=== PATIENT | male | born 1975 | race Caucasian/White ===

== ENCOUNTER 2023-10-08 22:10 | Emergency (ER) | payer OTHER, SELFPAY ==
--- OUTSIDE RECORDS SUMMARY | 2023-10-08 22:13 | XMS REPORT | Continuity of Care Document ---
Author Name Unknown Address [address] [facility] [address] [place] [address] [facility] [address] [facility] [place] [address] Care Team Providers Care Line Fixer Name Role Phone ARRON SILVER Primary Care Physician Unavailab DR ARRON Guido Attending Clinician Unavailable [phone] Attending Clinician Unavailable DR ARRON SILVER Admitting Clinician Unavailable Allergies, Adverse Reactions, Alerts Allergy Name Allergy Type Status Severity Reaction(s) Onset Date Inactive Date Treating Clinician Comments Source JOHN MCDANIEL Active UNKNOWN [facility] Encounters Start Date/Time End Date/Time Encounter Type Admission Type Attending Clinicians Care Facility Care Department Encounter ID Source 2022-04-13 13:29:38 Outpatient [facility] [id number] [facility] 2022-04-13 13:26:00 2022-04-13 14:41:00 Emergency E ARRON SILVER [id number] [facility] EM[facility] [id number] [facility]
[2023-10-08] MEDS ORDERED: HYDROCODONE/APAP 7.5/325 MG TAB ONE (23:21)
--- NOTE | 2023-10-09 01:03 | ER ---
Nurse's Notes [facility] Name: Reno Aguilar Age: 48 yrs Sex: Male : 1975 Arrival Date: 10/08/2023 Time: 22:10 Bed 10 Private MD: Diagnosis: Unspecified injury of head, initial encounter;Low back pain;Fall on same level, unspecified Presentation: 10/07 22:32 Chief complaint: Chief complaint: Patient states: My knee buckled in the shower, I fell vc1 and hit my head passing out. 22:32 Coronavirus screen: At this time, the client does not indicate any symptoms associated vc1 with coronavirus-19. Ebola Screen: Patient negative for fever greater than or equal to 101.5 degrees Fahrenheit, and additional compatible Ebola Virus Disease symptoms Patient denies exposure to infectious person. Patient denies travel to an Ebola-affected area in the 21 days before illness onset. No symptoms or risks identified at this time. Initial Sepsis Screen: Does the patient meet any 2 criteria? No. Patient's initial sepsis screen is negative. Does the patient have a suspected source of infection? No. Patient's initial sepsis screen is negative. Risk Assessment: Do you want to hurt yourself or someone else? Patient reports no desire to harm self or others. Onset of symptoms was October 08, 2023. 22:32 Method Of Arrival: Wheelchair vc1 22:32 Acuity: TRUE 3 vc1 Triage Assessment: 10/08 02:50 General: Appears in no apparent distress. Behavior is calm, cooperative. vc1 Historical: - Allergies: 10/07 22:32 Dilaudid; vc1 - Home Meds: 22:32 None [Active]; vc1 - PMHx: 22:32 None; vc1 - PSHx: 22:32 Appendectomy; knee surgery; colon resection; vc1 - Immunization history:: Client reports having NOT received the Covid vaccine. - Infectious Disease History:: Denies. - Social history:: Smoking status: Patient denies any tobacco usage or history of. Screenin:32 [facility] ED Fall Risk Assessment (Adult) History of falling in the last 3 months, vc1 including since admission Yes- single mechanical fall (1 pt) Confusion or Disorientation No (0 pts) Intoxicated or Sedated No (0 pts) Impaired Gait Yes (1 pt) Mobility Assist Device Used No (0 pt) Altered Elimination No (0 pt) Score/Fall Risk Level 0 - 2 = Low Risk Oriented to surroundings, Maintained a safe environment, Educated pt \T\ family on fall prevention, incl call for assistance when getting out of bed. Abuse screen: Denies threats or abuse. Nutritional screening: No deficits noted. Tuberculosis screening: No symptoms or risk factors identified. Assessment: 22:40 General: see triage assessment. vc1 10/08 02:49 Reassessment: Patient appears in no apparent distress at this time. No changes from vc1 previously documented assessment. Patient and/or family updated on plan of care and expected duration. Pain level reassessed. Patient is alert, oriented x 3, equal unlabored respirations, skin warm/dry/pink. Vital Signs: 10/07 22:32 BP 162 / 73; Pulse 88; Resp 17; Temp 98.4; Pulse Ox 99% ; Weight 103.87 kg; Height 6 vc1 ft. 0 in. ; Pain 8/10; 10/08 02:49 BP 149 / 77; Pulse 81; Resp 16 S; Temp 98.1(O); Pulse Ox 100% on R/A; vc1 10/07 22:32 Body Mass Index 31.06 (103.87 kg, 182.88 cm) vc1 10/07 22:32 Pain Scale: Adult vc1 [place] Coma Score: 10/07 23:00 Eye Response: spontaneous(4). Motor Response: obeys commands(6). Verbal Response: cp oriented(5). Total: 15. ED Course: 22:11 Patient arrived in ED. mr 22:24 Robbie Neff PA is PHCP. cp 22:24 Mahesh Long MD is Attending Physician. cp 22:40 Arm band placed on right wrist. vc1 23:19 Belen Weinberg is Primary Nurse. cp4 23:34 Triage completed. vc1 23:35 CT Head C Spine In Process Unspecified. EDMS 23:40 CT Lumbar Spine Wo Con In Process Unspecified. EDMS 10/08 02:50 No provider procedures requiring assistance completed. Patient did not have IV access vc1 during this emergency room visit. Administered Medications: 10/07 23:24 Drug: Hydrocodone-Acetaminophen PO (7.5 mg-325 mg) 1 tabs PO once; RASS on ADMIN: cp4 Combtv4, Very Agttd3, Agttd2, Rstlss1, AlertClm0, Drwsy-1, Lt Sdtn-2, Mod Sdtn-3, Dp Sdtn-4, UnArsble-5 Route: PO; 10/08 02:49 Follow up: Response: No adverse reaction vc1 Medication: 10/07 22:34 VIS not applicable for this client. vc1 Outcome: 10/08 01:03 Discharge ordered by . cp 02:50 Discharged to home ambulatory, vc1 02:50 Condition: stable 02:50 Discharge instructions given to patient, Instructed on discharge instructions, follow up and referral plans. medication usage, Demonstrated understanding of instructions, follow-up care, medications, Prescriptions given X 1, 02:50 Patient left the ED. vc1 Signatures: Dispatcher [employer] EDMS Ashley Davis, Reg Reg mr Robbie Neff, Pat Eaton cp, RN RN vc1 Belen Weinberg cp4 Corrections: (The following items were deleted from the chart) 10/07 23:36 22:32 PSHx: None; vc1 vc1
--- NOTE | 2023-10-09 01:03 | EDPHYS ---
Physician Documentation [facility] Name: Reno Aguilar Age: 48 yrs Sex: Male : 1975 Arrival Date: 10/08/2023 Time: 22:10 Bed 10 Private MD: ED Physician Mahesh Long HPI: 10/07 23:00 This 48 yrs old Male presents to ER via Wheelchair with complaints of Passed Out Prior cp To Arrival, Head Injury With LOC-Adult. 23:00 The patient or guardian reports injury, pain. cp 23:00 The complaints affect the scalp. Context of injury: slip and fall after knee buckled cp and gave out getting out of shower. Onset: The symptoms/episode began/occurred today. Associated signs and symptoms: Pertinent positives: loss of conciousness, headache, low back pain, Pertinent negatives: seizure, vomiting. Historical: - Allergies: 22:32 Dilaudid; vc1 - Home Meds: 22:32 None [Active]; vc1 - PMHx: 22:32 None; vc1 - PSHx: 22:32 Appendectomy; knee surgery; colon resection; vc1 - Immunization history:: Client reports having NOT received the Covid vaccine. - Infectious Disease History:: Denies. - Social history:: Smoking status: Patient denies any tobacco usage or history of. ROS: 23:05 Constitutional: Negative for body aches, chills, fever, poor PO intake, cp 23:05 Cardiovascular: Negative for chest pain, cp 23:05 Respiratory: Negative for cough, shortness of breath, wheezing, 23:05 Abdomen/GI: Negative for abdominal pain, vomiting, diarrhea, constipation, 23:05 Back: Positive for low back pain, 23:05 Neuro: Positive for headache, loss of consciousness, Negative for altered mental status, seizure activity, weakness, 23:05 All other systems are negative, Exam: 23:10 Constitutional: The patient appears in no acute distress, alert, awake, non-toxic, well cp developed, well nourished, uncomfortable, 23:10 Head/face: Exam is negative for laceration(s), cp 23:10 Eyes: Periorbital structures: appear normal, Pupils: equal, round, and reactive to light and accomodation, Extraocular movements: intact throughout, Conjunctiva: normal, no exudate, no injection, Sclera: no appreciated abnormality, Lids and lashes: appear normal, bilaterally, 23:10 ENT: External ear(s): are unremarkable, Ear canal(s): are normal, clear, TM's: dullness, bilaterally, Nose: is normal, Mouth: Lips: moist, Oral mucosa: pink and intact, moist, Posterior pharynx: Airway: no evidence of obstruction, patent, 23:10 Neck: C-spine: vertebral tenderness, is not appreciated, crepitus, is not appreciated, 23:10 Chest/axilla: Inspection: normal, Palpation: is normal, no crepitus, no tenderness, 23:10 Cardiovascular: Rate: normal, Rhythm: regular, 23:10 Respiratory: the patient does not display signs of respiratory distress, Respirations: normal, no use of accessory muscles, no retractions, labored breathing, is not present, Breath sounds: are clear throughout, no decreased breath sounds, no stridor, no wheezing, 23:10 Abdomen/GI: Inspection: abdomen appears normal, Palpation: abdomen is soft and non-tender, in all quadrants, 23:10 Back: pain, that is moderate, of the right mid back and right low back, ROM is painful, with all movement, 23:10 Musculoskeletal/extremity: Exam is negative for decreased range of motion, deformity, injury, 23:10 Neuro: Orientation: to person, place \T\ time. Mentation: is normal, Motor: moves all fours, no focal deficits, Sensation: no obvious gross deficits, Vital Signs: 22:32 BP 162 / 73; Pulse 88; Resp 17; Temp 98.4; Pulse Ox 99% ; Weight 103.87 kg; Height 6 vc1 ft. 0 in. ; Pain 8/10; 10/08 02:49 BP 149 / 77; Pulse 81; Resp 16 S; Temp 98.1(O); Pulse Ox 100% on R/A; vc1 10/07 22:32 Body Mass Index 31.06 (103.87 kg, 182.88 cm) vc1 10/07 22:32 Pain Scale: Adult vc1 [place] Coma Score: 10/07 23:00 Eye Response: spontaneous(4). Motor Response: obeys commands(6). Verbal Response: cp oriented(5). Total: 15. MDM: 22:35 Patient medically screened. cp 10/08 01:02 Data reviewed: vital signs, nurses notes, radiologic studies, CT scan. cp 01:02 Differential diagnosis: Contusion of Hematoma on Intracranial bleed- Concussion cp cerebral contusion. I considered the following discharge prescriptions or medication management in the emergency department Medications were administered in the Emergency Department. See MAR. Counseling: I had a detailed discussion with the patient and/or guardian regarding the historical points, exam findings, and any diagnostic results supporting the discharge/admit diagnosis, radiology results, to return to the emergency department if symptoms worsen or persist or if there are any questions or concerns that arise at home. Response to treatment: the patient's symptoms have mildly improved after treatment, and as a result, I will discharge patient. 10/07 22:42 Order name: CT Head C Spine cp 10/07 22:42 Order name: CT Lumbar Spine Wo Con cp Administered Medications: 10/07 23:24 Drug: Hydrocodone-Acetaminophen PO (7.5 mg-325 mg) 1 tabs PO once; RASS on ADMIN: cp4 Combtv4, Very Agttd3, Agttd2, Rstlss1, AlertClm0, Drwsy-1, Lt Sdtn-2, Mod Sdtn-3, Dp Sdtn-4, UnArsble-5 Route: PO; 10/08 02:49 Follow up: Response: No adverse reaction vc1 Disposition Summary: 10/09/23 01:03 Discharge Ordered Notes: Location: Home cp Problem: new cp Symptoms: have improved cp Condition: Stable cp Diagnosis - Unspecified injury of head, initial encounter cp - Low back pain cp - Fall on same level, unspecified cp Followup: cp - With: Private Physician - When: 2 - 3 days - Reason: Recheck today's complaints Discharge Instructions: - Discharge Summary Sheet cp - Acute Back Pain, Adult cp - Head Injury, Adult cp - Back Exercises cp Forms: - Medication Reconciliation Form cp - Antibiotic Education cp - Prescription Opioid Use cp - Patient Portal Instructions cp - Leadership Thank You Letter cp Prescriptions: - Cyclobenzaprine 10 mg Oral Tablet - take 1 tablet ORAL route every 8 hours As needed; 30 tablet; Refills: 0, cp Product Selection Permitted Addendum: 10/10/2023 06:46 I was immediately available for consultation during this patient's visit. I did not e c2 personally see the patient or discuss the patient with the JOSE. . Signatures: Dispatcher [employer] Robbie Mcclure PA PA cp Calcote, Vanessa, RN RN vc1 Mahesh Long MD MD ec2 Belen Weinberg cp4 Corrections: (The following items were deleted from the chart) 10/07 23:36 22:32 PSHx: None; vc1 vc1 10/09 01:32 01:30 The patient or guardian reports injury, pain, cp cp
[2023-10-09 03:33] VITALS: BP 149/77; TEMP 98.1; O2SAT 100
--- NOTE | 2023-10-10 21:06 | RAD REPORT ---
EXAM DESCRIPTION: CT - Spine Lumbar Wo Con - 10/09/2023 7:16 am CLINICAL HISTORY: 48 years Male fall; Pain TECHNIQUE: Contiguous axial CT images obtained through the lumbar spine without IV contrast. Coronal and sagittal reformatted images also provided. This CT exam was performed according to our departmental dose-optimization program, which includes on e or more of the following dose reduction techniques: automated exposure control, adjustment of the m A and/or kV according to patient size, and/or use of iterative reconstruction technique. COMPARISON: No prior exams provided for comparison. FINDINGS: The lumbar spine demonstrates normal alignment without acute fracture or subluxation. Mild multilevel degenerative disc disease. Partial lumbarization of S1 on the right. No aggressive osseou s lesion. Minimal degenerative changes of both sacroiliac joints. No acute paraspinal soft tissue abnormality. There is mild multilevel degenerative disc disease. Th e sacroiliac joints are preserved. Visualized portions of the retroperitoneum and paraspinal soft tis shirley structures are unremarkable. At L3-L4, there is mild central canal stenosis with slight bilateral neural foraminal narrowing. At L4-L5, there is mild central canal stenosis with slight bilateral neural foraminal narrowing. At L5-S1 there is mild central canal stenosis with moderate bilateral neural foraminal stenosis. IMPRESSION: No acute lumbar spine injury. Degenerative changes resulting in central canal and neural foraminal stenoses as described. Electronically signed by: Swetha Watts MD 10/09/2023 12:37 AM CDT RP Due to temporary technical issues with the PACS/Fluency reporting system, reports are being signed by the in house radiologists without review as a courtesy to insure prompt reporting. The interpreting radiologist is fully responsible for the content of the report.
--- NOTE | 2023-10-10 21:11 | RAD REPORT ---
EXAM DESCRIPTION: CT - Head C Spine Mpr Wo Con - 10/09/2023 7:16 am CLINICAL HISTORY: 48 years Male fall and hit head, LOC COMPARISON: None TECHNIQUE: Images were obtained in axial, sagittal, and coronal planes. This exam was performed according to our departmental dose-optimization program which includes use of Automated Exposure Control, adjustment of the mA and/or kV according to patient size and/or use of iterative reconstruction technique. FINDINGS: CT brain: Ventricular system appears normal. No abnormal areas of increased attenuation se en. No extra-axial fluid collections noted. No evidence for skull fracture. Lobular mucosal thickenin g right maxillary antrum. Symmetric aeration of mastoid air cells bilaterally. CT cervical spine: Vertebral body height is within normal limits. Satisfactory alignment noted. Intac t odontoid and predental space. Prevertebral soft tissues appear normal. Intact occipital condyles. I ntact C1. Posterior elements intact on all levels. No focal disc protrusion. No abnormality in lung a pices bilaterally. Mild degenerative spurring with degenerative fragments. IMPRESSION: 1. No acute intracranial abnormality. No evidence for hemorrhage, mass lesion, or larg e acute infarction. 2. No acute fracture or subluxation involving the cervical spine. Mild degenerative change. Electronically signed by: Cynthia Mayes MD 10/09/2023 12:30 AM CDT RP Due to temporary technical issues with the PACS/Fluency reporting system, reports are being signed by the in house radiologists without review as a courtesy to insure prompt reporting. The interpreting radiologist is fully responsible for the content of the report.
== END 2023-10-09 02:50 | disposition home or self-care (01) ==
LOC: ER 22:10
DX: S09.90XA Unspecified injury of head, initial encounter (principal); M54.50 Low back pain, unspecified; W18.30XA Fall on same level, unspecified, initial encounter
CPT/HCPCS: 70450; 72125; 72131; 99283

== ENCOUNTER 2024-04-25 16:18 | Emergency (ER) | payer OTHER ==
--- OUTSIDE RECORDS SUMMARY | 2024-04-25 16:20 | XMS REPORT | Continuity of Care Document ---
Author Name Unknown Address [address] [facility] [address] [place] [address] [facility] Address [address] [facility] [address] [place] [address] Care Team Providers Care Hides Soaker Name Role Phone ARRON SILVER Primary Care Physician Unavailab DR ARRON Guido Attending Clinician Unavailable [phone] Attending Clinician Unavailable DR ARRON SILVER Admitting Clinician Unavailable Allergies, Adverse Reactions, Alerts Allergy Name Allergy Type Status Severity Reaction(s) Onset Date Inactive Date Treating Clinician Comments Source JOHN MCDANIEL Active UNKNOWN [facility] Encounters Start Date/Time End Date/Time Encounter Type Admission Type Attending Clinicians Care Facility Care Department Encounter ID Source 2022-04-13 13:29:38 Outpatient [facility] [id number] [facility] 2022-04-13 13:26:00 2022-04-13 14:41:00 Emergency E ARRON SILVER [id number] [facility] EM[facility] [id number] [facility]
--- NOTE | 2024-04-25 17:41 | RAD REPORT ---
EXAM: Right upper quadrant ultrasound. CLINICAL HISTORY: ABD PAIN COMPARISON: None. FINDINGS: Gallbladder: Normal. Bile ducts: No intrahepatic or extrahepatic biliary dilatation. Common bile duct measures 4 mm. Limited imaging of the liver shows fatty filtration. IMPRESSION: Unremarkable exam.
[2024-04-25] MEDS ORDERED: FAMOTIDINE 20 MG/2 ML VIAL IV ONE (17:48)
[2024-04-25] MEDS ORDERED: ONDANSETRON 4 MG/2 ML VIAL ONE (17:48)
[2024-04-25] MEDS ORDERED: NA CHLORIDE 0.9% 1,000 ML ONE (17:48)
[2024-04-25] MEDS ORDERED: MORPHINE 4 MG/ML SYR ONE (17:48)
[2024-04-25 17:52] LABS: Absolute Basophils 0.1 K/uL (0-0.5); Absolute Eosinophils 0.3 K/uL (0-0.5); Absolute Monocytes 0.9 K/uL (0.1-1.3); Absolute Neutrophil 4.5 K/uL (1.8-8.0); Basophils % 0.9 % (0-1.3); Eosinophils % 3.8 % (0-4.4); Hematocrit 48.1 % (39.6-49.0); Lymphocytes % 34.2 % (15.3-44.8); MCH 30.5 pg (27.0-35.0); MCHC 33.3 g/dL (32.0-36.0); MCV 91.4 fL (80-100); MPV 7.8 fL (7.6-11.3); Monocytes % 10.1 % (3.3-12.3); Nucleated Red Blood Cells % 0.2 % (0-0); Platelets 272 thou/uL (152-406); RBC Red Blood Cell Count 5.26 M/uL (4.33-5.43); Red Cell Distribution Width 12.8 % (12.1-15.2)
[2024-04-25 18:09] LABS: Albumin 3.6 g/dL (3.4-5.0); Anion Gap 7.9 mEq/L (5.0-15.0); Bilirubin Total 0.3 mg/dL (0.2-1.0); Globulin 3.7 g/dL (2.3-3.5); Potassium 3.9 mEq/L (3.5-5.1); Protein, Total 7.3 g/dL (6.4-8.2)
--- NOTE | 2024-04-25 19:27 | RAD REPORT ---
EXAMINATION: CT ABDOMEN AND PELVIS WITH CONTRAST CLINICAL INDICATION: ABD PAIN TECHNIQUE: CT abdomen and pelvis was performed, after the administration of IV contrast, as per [facility] protocol. Axial, sagittal and coronal reconstructions were obtained. One or more of the following dose reduction techniques were used: Automated exposure control, adjustment of the mA and k V according to patient size, and iterative reconstruction. Unless otherwise specified, incidental findings do not require dedicated imaging follow-up. COMPARISON: No prior exam. FINDINGS: LOWER CHEST: The visualized lung bases are clear. LIVER: Mild fatty liver is present. No focal lesion or biliary dilatation is seen. Grossly unremark able gallbladder. SPLEEN: Normal size. No focal lesion. PANCREAS: No mass, ductal dilation, or trav-pancreatic fluid. ADRENALS: Normal; no mass. KIDNEYS: Normal size and contour. No hydronephrosis. GASTROINTESTINAL TRACT: No evidence of free air, significant intra-abdominal free fluid, bowel obstru ction or abscess. APPENDIX: Appendix not visualized, but no inflammatory changes in region of appendix. LYMPH NODES: No lymphadenopathy. MUSCULOSKELETAL: No acute or suspicious osseous abnormality. ADDITIONAL FINDINGS: None. IMPRESSION: No acute or concerning abnormalities seen in the abdomen or pelvis.
--- NOTE | 2024-04-25 19:39 | ER ---
Nurse's Notes [facility] Name: Reno Aguilar Age: 49 yrs Sex: Male : 1975 Arrival Date: 04/25/2024 Time: 16:18 Bed 17 Private MD: Diagnosis: Upper abdominal pain, unspecified Presentation: 04/25 16:29 Chief complaint: Patient states: RUQ Abdominal pain since last night radiating to right tm6 back. Nausea, no vomiting. I just was at the [place] clinic, they suspect gallbladder and sent me here. Coronavirus screen: Client denies travel out of the [place] in the last 14 days. Ebola Screen: Patient negative for fever greater than or equal to 101.5 degrees Fahrenheit, and additional compatible Ebola Virus Disease symptoms Patient denies exposure to infectious person. Patient denies travel to an Ebola-affected area in the 21 days before illness onset. No symptoms or risks identified at this time. Onset of symptoms was April 24, 2024. 16:29 Method Of Arrival: Ambulatory tm6 16:29 Acuity: TRUE 3 tm6 16:33 Initial Sepsis Screen: Does the patient meet any 2 criteria? No. Patient's initial tm6 sepsis screen is negative. Does the patient have a suspected source of infection? No. Patient's initial sepsis screen is negative. Risk Assessment: Do you want to hurt yourself or someone else? Patient reports no desire to harm self or others. Triage Assessment: 16:30 General: Appears in no apparent distress. uncomfortable, Behavior is calm, cooperative. tm6 Pain: Complains of pain in mid back area and right upper quadrant. Pain:. EENT: No signs and/or symptoms were reported regarding the EENT system. Neuro: Level of Consciousness is awake, alert, obeys commands, Oriented to person, place, time, situation. Cardiovascular: Patient's skin is warm and dry. Respiratory: Airway is patent Respiratory effort is even, unlabored, Respiratory pattern is regular, symmetrical. GI: Abdomen is flat, non-distended, Reports upper abdominal pain, nausea. : No signs and/or symptoms were reported regarding the genitourinary system. Derm: No signs and/or symptoms reported regarding the dermatologic system. Musculoskeletal: Reports pain in back. Historical: - Allergies: 16:30 Dilaudid; tm6 - PSHx: 16:30 colon resection; Appendectomy; knee surgery; tm6 - Immunization history:: Flu vaccine is not up to date. - Infectious Disease History:: Denies. - Social history:: Smoking status: Patient denies any tobacco usage or history of. Screenin:17 [facility] ED Fall Risk Assessment (Adult) History of falling in the last 3 months, ay including since admission No falls in past 3 months (0 pts) Confusion or Disorientation No (0 pts) Intoxicated or Sedated No (0 pts) Impaired Gait No (0 pts) Mobility Assist Device Used No (0 pt) Altered Elimination No (0 pt) Score/Fall Risk Level 0 - 2 = Low Risk Oriented to surroundings, Maintained a safe environment, Educated pt \T\ family on fall prevention, incl call for assistance when getting out of bed. Abuse screen: Denies threats or abuse. Nutritional screening: No deficits noted. Tuberculosis screening: No symptoms or risk factors identified. Assessment: 18:28 Reassessment: Patient appears in no apparent distress at this time. Patient and/or jb4 family updated on plan of care and expected duration. Pain level reassessed. Patient is alert, oriented x 3, equal unlabored respirations, skin warm/dry/pink. Patient states feeling better. 20:04 Reassessment: Took over care of pt ATT. Pt alert and oriented, no any distress noted. ay c/o of minimal pain to the RUQ that radiates to the back. VSS. 20:19 GI: Bowel sounds present X 4 quads. Abd is soft Abdomen is tender to palpation in right ay upper quadrant. Vital Signs: 16:30 BP 119 / 87; Pulse 77; Resp 17; Temp 98.1(O); Pulse Ox 97% on R/A; MAP 95 mmHg; Weight tm6 115.67 kg; Height 6 ft. 0 in. ; Pain 6/10; 16:33 Pain 6/10; tm6 18:28 BP 124 / 83; Pulse 62; Resp 16; Pulse Ox 98% on R/A; jb4 20:16 BP 128 / 80; Pulse 60; Resp 20; Pulse Ox 96% on R/A; ay 16:30 Body Mass Index 34.58 (115.67 kg, 182.88 cm) tm6 16:30 Pain Scale: Adult tm6 16:33 Pain Scale: Adult tm6 ED Course: 16:21 Patient arrived in ED. sj2 16:24 Sony[facility] R[facility] FNP-C [facility]. kb 16:24 Rona Hamlin MD is Attending Physician. kb 16:30 Triage completed. tm6 16:33 Arm band placed on right wrist. tm6 17:18 Abdomen Limited US In Process Unspecified. EDMS 17:43 CBC with Diff Sent. jb4 17:43 CMP Sent. jb4 17:43 Lipase Sent. jb4 18:28 Davide Munroe, RN is Primary Nurse. jb4 19:16 CT Abd/Pelvis - IV Contrast Only In Process Unspecified. EDMS 20:17 Patient has correct armband on for positive identification. Bed in low position. Call ay light in reach. Side rails up X2. Provided Education on: plan of care. 20:17 No provider procedures requiring assistance completed. IV discontinued, intact, ay bleeding controlled, No redness/swelling at site. Pressure dressing applied. Administered Medications: 18:03 Drug: Famotidine IVP 20 mg IVP once; dilute with 10 mL 0.9% NaCl; give over 2 minutes jb4 Route: IVP; Site: left antecubital; 20:16 Follow up: Response: No adverse reaction ay 18:03 Drug: Ondansetron IVP 4 mg IVP once; over 2 minutes Route: IVP; Site: left antecubital; jb4 20:16 Follow up: Response: No adverse reaction ay 18:03 Drug: morphine IVP or IV 4 mg IVP once over 4 mins Route: IVP; Infused Over: 4 mins; jb4 Site: left antecubital; 20:16 Follow up: Response: No adverse reaction ay 18:03 Drug: NS 0.9% IV 1000 ml IV at 1 bolus Per protocol; to be given as a bolus over 60 jb4 minutes Route: IV; Rate: 1 bolus; Site: left antecubital; 20:20 Follow up: IV Status: Completed infusion; IV Intake: 1000ml ay 20:00 Drug: Hydrocodone-Acetaminophen PO (7.5 mg-325 mg) 1 tabs PO once Route: PO; jb4 20:15 Follow up: Response: No adverse reaction ay Medication: 20:17 VIS not applicable for this client. ay Intake: 20:20 IV: 1000ml; Total: 1000ml. ay Outcome: 19:38 Discharge ordered by MD. liriano 20:17 Discharged to home ambulatory, ay 20:17 Condition: stable 20:17 Discharge instructions given to patient, Instructed on discharge instructions, follow up and referral plans. Demonstrated understanding of instructions, follow-up care, medications, Prescriptions given X 3, 20:20 Patient left the ED. ay Signatures: Dispatcher [employer] EDPA Sonya Rai, ULYSSES VALENTINE-Davide Kirby, RN RN jb4 Genaro Kelly RN RN tm6 Shayla Meadows sj2 Sorin Lunsford RN RN ay
--- NOTE | 2024-04-25 19:39 | EDPHYS ---
Physician Documentation [facility] Name: Reno Aguilar Age: 49 yrs Sex: Male : 1975 Arrival Date: 04/25/2024 Time: 16:18 Bed 17 Private MD: ED Physician Rona Hamlin HPI: 04/25 18:55 This 49 yrs old Male presents to ER via Ambulatory with complaints of Abdominal Pain, kb SENT FROM [place] [facility]-GALBLADDER ISSUES. 18:55 Patient is a 49-year-old male who presents for right upper quadrant pain that started kb last night. Reports nausea. Denies vomiting, diarrhea, fever. [facility] ER to rule out gallbladder complications. No aggravating or alleviating factors.. Historical: - Allergies: 16:30 Dilaudid; tm6 - PSHx: 16:30 colon resection; Appendectomy; knee surgery; tm6 - Immunization history:: Flu vaccine is not up to date. - Infectious Disease History:: Denies. - Social history:: Smoking status: Patient denies any tobacco usage or history of. ROS: 18:55 Constitutional: As per HPI kb Exam: 18:55 Constitutional: This is a well developed, well nourished patient who is awake, alert, kb and in no acute distress. Head/Face: Normocephalic, atraumatic. ENT: Moist Mucous membranes Cardiovascular: Regular rate Respiratory: Respirations even and unlabored. No increased work of breathing. Talking in full sentences Back: No spinal tenderness. No costovertebral tenderness. Full range of motion. Skin: Warm, dry with normal turgor. Normal color. MS/ Extremity: Pulses equal, no cyanosis. Neurovascular intact. Full, normal range of motion. Neuro: Awake and alert, GCS 15, oriented to person, place, time, and situation. 18:55 Abdomen/GI: Inspection: abdomen appears normal, Bowel sounds: normal, Palpation: soft, in all quadrants, moderate abdominal tenderness, in the epigastric area and right upper quadrant, Vital Signs: 16:30 BP 119 / 87; Pulse 77; Resp 17; Temp 98.1(O); Pulse Ox 97% on R/A; MAP 95 mmHg; Weight tm6 115.67 kg; Height 6 ft. 0 in. ; Pain 6/10; 16:33 Pain 6/10; tm6 18:28 BP 124 / 83; Pulse 62; Resp 16; Pulse Ox 98% on R/A; jb4 20:16 BP 128 / 80; Pulse 60; Resp 20; Pulse Ox 96% on R/A; ay 16:30 Body Mass Index 34.58 (115.67 kg, 182.88 cm) tm6 16:30 Pain Scale: Adult tm6 16:33 Pain Scale: Adult tm6 MDM: 16:24 Medical Screening Exam initiated kb 19:37 Data reviewed: vital signs, nurses notes. kb 19:37 Differential diagnosis: cholecystitis, Cholelithiasis, gastritis, gastroesophageal kb reflux disease, non-specific abd pain, pancreatitis. Historians other than the Patient: Spouse/Significant Other: . Counseling: I had a detailed discussion with the patient and/or guardian regarding the historical points, exam findings, and any diagnostic results supporting the discharge/admit diagnosis, lab results, radiology results, the need for outpatient follow up, a radiological technician, to return to the emergency department if symptoms worsen or persist or if there are any questions or concerns that arise at home. 04/25 16:32 Order name: CBC with Diff; Complete Time: 18:01 kb 04/25 16:32 Order name: CMP; Complete Time: 18:12 kb 04/25 16:32 Order name: Lipase; Complete Time: 18:12 kb 04/25 16:32 Order name: Abdomen Limited US; Complete Time: 17:43 kb 04/25 17:52 Order name: CT Abd/Pelvis - IV Contrast Only; Complete Time: 19:32 kb 04/25 16:32 Order name: IV Saline Lock; Complete Time: 17:43 kb 04/25 16:32 Order name: Labs collected and sent; Complete Time: 17:43 kb Administered Medications: 18:03 Drug: Famotidine IVP 20 mg IVP once; dilute with 10 mL 0.9% NaCl; give over 2 minutes jb4 Route: IVP; Site: left antecubital; 20:16 Follow up: Response: No adverse reaction ay 18:03 Drug: Ondansetron IVP 4 mg IVP once; over 2 minutes Route: IVP; Site: left antecubital; jb4 20:16 Follow up: Response: No adverse reaction ay 18:03 Drug: morphine IVP or IV 4 mg IVP once over 4 mins Route: IVP; Infused Over: 4 mins; jb4 Site: left antecubital; 20:16 Follow up: Response: No adverse reaction ay 18:03 Drug: NS 0.9% IV 1000 ml IV at 1 bolus Per protocol; to be given as a bolus over 60 jb4 minutes Route: IV; Rate: 1 bolus; Site: left antecubital; 20:20 Follow up: IV Status: Completed infusion; IV Intake: 1000ml ay 20:00 Drug: Hydrocodone-Acetaminophen PO (7.5 mg-325 mg) 1 tabs PO once Route: PO; jb4 20:15 Follow up: Response: No adverse reaction ay Disposition Summary: 04/25/24 19:38 Discharge Ordered Notes: Location: Home kb Condition: Stable kb Diagnosis - Upper abdominal pain, unspecified kb Followup: kb - With: Emergency Department - When: As needed - Reason: Worsening of condition Followup: kb - With: Private Physician - When: 2 - 3 days - Reason: Recheck today's complaints, Continuance of care, Re-evaluation by your physician Discharge Instructions: - Discharge Summary Sheet kb - Abdominal Pain, Adult, [id number] kb Forms: - Medication Reconciliation Form kb - Antibiotic Education kb - Prescription Opioid Use kb - Patient Portal Instructions kb - Leadership Thank You Letter kb Prescriptions: - Zofran 4 mg Oral tablet - take 1 tablet ORAL route every 6 hours As needed; 20 tablet; Refills: 0, kb Product Selection Permitted - dicyclomine 20 mg Oral tablet - take 1 tablet ORAL route 4 times per day As needed; 20 tablet; Refills: 0, kb Product Selection Permitted Signatures: Dispatcher [employer] Sonya Aguirre, ULYSSES VALENTINE-Davide Kirby, RN RN jb4 Genaro Kelly RN RN tm6 Sorin Lunsford RN ay
[2024-04-25] MEDS ORDERED: HYDROCODONE/APAP 7.5/325 MG TAB ONE (19:49)
[2024-04-25 20:24] VITALS: TEMP 98.1
[2024-04-25 20:29] VITALS: BP 128/80; O2SAT 96
== END 2024-04-25 20:20 | disposition home or self-care (01) ==
LOC: ER 16:18
DX: R10.11 Right upper quadrant pain (principal)
CPT/HCPCS: 96361; 85025; 36415; 83690; 80053; 74177; 76705; 96375; 96374; 99284; Q9967; J2405; J7030